=== PATIENT | female | born 1960 | race Caucasian/White ===

== ENCOUNTER 2019-04-24 11:11 | Day surgery (SDC) | payer BC, SELFPAY ==
--- NOTE | 2019-04-24 | COLBX_PTH ---
PATIENT: DOC NEUMANN LOC: EN U#:[id number] AGE/SX: 58/F ROOM: RE04/24/[address]: Dr. Shanna Akhtar MD : 1960 BED: DIS: 04/24/2019 SPEC #: [id number] RECD: 04/24/19 14:37 STATUS: STEFANI RETatiana #: [id number] YUMIKO: 04/24/19 00:[address]: Shanna Akhtar DEPT: SURGICAL PATHOLOGY RECD BY: Jaime Awad ENTERED: 04/24/19 14:39 SP TYPE: COLON BX OTHR DR: Dr. Tucker Wilcox III, MD Tissues: Cecum, NOS Procedures: Surgery Specimen Level IV HEADER OPERATION: Colonoscopy (MAC) PRE-OP DIAGNOSIS: Screening TISSUE SUBMITTED: Cecal polyp biopsy MICROSCOPIC DIAGNOSIS Cecal polyp, biopsy: Hyperplastic polyp. SJ:ash 04/25/19 MICROSCOPIC DESCRIPTION Slides are reviewed. GROSS DESCRIPTION Received in fixative is one container labeled with the patient's name and designated cecal polyp biopsy. The specimen consists of one irregular fragment of light guerrero soft tissue that measures 0.2 x 0.2 x 0.1 cm. The specimen is totally submitted in one cassette. / SJ:ash 04/24/19 TC:1 CPT: 86061
--- NOTE | 2019-04-24 09:48 | PCM.HP.BLA ---
History and Physical Date of Admission: 04/24/19 GENERAL HISTORY AND PHYSICAL EXAMINATION Chief Complaint: here for colonoscopy History of Present Illness: 58 y/o WF here for colon cancer for screening for colon cancer. She states that she last had a colonoscopy about 10 years ago. She denies family history of colon cancer. Denies noting blood in stools Past Medical History: hypothyroidism history of breast cancer hypertension Past Surgical History: AMPUTATION TRANSMETACARP,SECOND CLOS ? 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 2013 LUMPECTOMY/RADIOTHERAPY DIAG MAMM/A10 ? 1994 LEFT cancer, no nodes. Medications: aspirin, enteric coated (ASPIRIN, ENTERIC COATED) 81 mg EC tablet DAILY MULTI-VITAMIN ORAL levothyroxine (SYNTHROID) 175 mcg tablet lisinopril (ZESTRIL, PRINIVIL) 10 mg tablet Allergies: Has no known drug allergies Social history: TOB use denies Review of Systems: General - denies fevers Cardiovascular denies chest pain Pulmonary denies coughing up blood Gastrointestinal as per HPI Neurological denies seizures Genitourinary denies blood in urine Hematological denies spontaneous/prolonged bleeding Skin denies open non healing wounds Endocrine has hypothyrodism Psychological denies hallucinations Physical examination: General WD/WN WF in no apparent distress, alert and oriented, not septic appearing HEENT Normocephalic. EOM intact with sclera clear and no icterus noted. Neck is supple with no jugular venous distention noted. Trachea is midline. Lungs normal breath sounds . No rales/rhonchi/wheezing noted. No labored breathing noted, such as retractions. No cough heard. Heart normal heart sounds, regular. Abdomen soft and benign. Normal bowel sounds Extremities no pitting edema noted. . Genitourinary/Rectal deferred Skin normal skin integrity. Neurological non focal. Psychological normal affect, patient is calm and appropriate Impression: screening for colon cancer via colonoscopy Discussion/Plan: I have discussed the above with the patient. I have offered colonoscopy, possible biopsies for evaluation. I have explained the procedure to the patient. I have counseled the patient as to the risks of the procedure, including but not limited to: infection, bleeding, injury to any blood vessels/nerves, perforation of the GI tract, injury to any internal organs such as liver/spleen, inability to complete the procedure, etc. - she understands and agrees to proceed. I have answered all questions to the patient?s satisfaction and the patient has no further questions.
[2019-04-24 11:32] VITALS: BP 135/97; PULSE 86; RESP 16; TEMP 36.9; O2SAT 96; BMI 34.7
[2019-04-24] MEDS: Lactated Ringers 1,000 ML 100 ML IV (11:45)
[2019-04-24 13:15] VITALS: BP 114/78; BP 135/97; PULSE 91; RESP 22; TEMP 36.4; O2SAT 93
--- NOTE | 2019-04-24 13:16 | OP.CCLET_ITS ---
04/24/2019 Tucker Wilcox Iii [address] [place] [address] Re : Colonoscopy procedure for Michelle See Dear Dr. Wilcox This procedure was performed on Wednesday, April 24, 2019. My impressions and recommendations are as follows: Impressions : - Preparation of the colon was fair. - One 4 to 9 mm polyp in the cecum, removed with a cold biopsy forceps. Resected and retrieved. - Non-bleeding internal hemorrhoids. Recommendations : - Repeat colonoscopy date to be determined after pending pathology results are reviewed for surveillance based on pathology results. - Return to my office to see VILMA Medina for results in 1-2 weeks. - Continue present medications. My findings are described in the full procedure note, which is enclosed. If I can be of further assistance, please feel free to contact me at Doctor phone number(s): , Work: . Sincerely, MD Shanna Felipe MD 04/24/2019 1:15:31 PM This report has been signed electronically.
--- NOTE | 2019-04-24 13:16 | OP.COLON_ITS ---
Patient Name: Michelle Rodas Procedure Date: 04/24/2019 12:35 PM Date of : 1960 Age: 58 Procedure: Colonoscopy Indications: Screening for colorectal malignant neoplasm Providers: Shanna Akhtar MD Referring MD: Tucker Wilcox Iii Medicines: See the Anesthesia note for documentation of the administered medications Patient Profile: Refer to note in patient chart for documentation of history and physical. Last Colonoscopy: 10 years ago. Complications: No immediate complications. Procedure: Pre-Anesthesia Assessment: - see anesthesia note After I obtained informed consent, the scope was passed under direct vision. Throughout the procedure, the patient's blood pressure, pulse, and oxygen saturations were monitored continuously. The colonoscope was introduced through the anus and advanced to the cecum, identified by appendiceal orifice and ileocecal valve. The colonoscopy was performed without difficulty. The patient tolerated the procedure well. The quality of the bowel preparation was poor, there was still retained fecal material. Therefore lavage and aspiration was done to clear the fecal material. This took some time. The lewis were cleared adequately. Scope In: 12:46:50 PM Scope Withdrawal Time 0 hours 10 minutes 42 seconds Scope Out: 1:09:52 PM Total Procedure Duration Time 0 hours 23 minutes 2 seconds Findings: The perianal and digital rectal examinations were normal. Pertinent negatives include normal sphincter tone. A 4 to 9 mm polyp was found in the cecum. The polyp was sessile. The polyp was removed with a cold biopsy forceps. Resection and retrieval were complete. Verification of patient identification for the specimen was done by the nurse. Estimated blood loss was minimal. Non-bleeding internal hemorrhoids were found. Impression: - Preparation of the colon was fair. - One 4 to 9 mm polyp in the cecum, removed with a cold biopsy forceps. Resected and retrieved. - Non-bleeding internal hemorrhoids. Recommendation: - Repeat colonoscopy date to be determined after pending pathology results are reviewed for surveillance based on pathology results. - Return to my office to see VILMA Medina for results in 1-2 weeks. - Continue present medications. Procedure Code(s): --- Professional --- 53443, Colonoscopy, flexible; with biopsy, single or multiple Diagnosis Code(s): --- Professional --- Z12.11, Encounter for screening for malignant neoplasm of colon K64.8, Other hemorrhoids D12.0, Benign neoplasm of cecum CPT copyright 2017 [employer]. All rights reserved. The codes documented in this report are preliminary and upon marine services technician review may be revised to meet current compliance requirements. MD Shanna Felipe MD 04/24/2019 1:15:31 PM This report has been signed electronically. Number of Addenda: 0 Note Initiated On: 04/24/2019 12:35 PM
[2019-04-24 13:20] VITALS: BP 110/72; BP 135/97; PULSE 81; RESP 16; O2SAT 95
[2019-04-24 13:25] VITALS: BP 109/78; BP 135/97; PULSE 80; RESP 16; O2SAT 94
[2019-04-24 13:30] VITALS: BP 119/82; BP 135/97; PULSE 78; RESP 16; TEMP 36.4; O2SAT 93
[2019-04-24 14:11] VITALS: BP 135/97
== END 2019-04-24 14:12 | disposition home or self-care (01) ==
LOC: EN 11:12 → AC 11:15
PROVIDERS: PCP Family Medicine; Referring Provider Surgery; Visit Provider Surgery
PROC: 0DJD8ZZ Inspection of Lower Intestinal Tract, Via Natural or Artificial Opening Endoscopic (ICD-10-PCS; CPT 45378; principal; 2019-04-24 12:25)
DX: Z12.11 Encounter for screening for malignant neoplasm of colon (principal); K63.5 Polyp of colon; K64.8 Other hemorrhoids; I10 Essential (primary) hypertension; E03.9 Hypothyroidism, unspecified; Z78.0 Asymptomatic menopausal state; Z79.82 Long term (current) use of aspirin; Z79.899 Other long term (current) drug therapy; Z85.3 Personal history of malignant neoplasm of breast; Z92.21 Personal history of antineoplastic chemotherapy; Z92.3 Personal history of irradiation
CPT/HCPCS: 45380; 88305; J7120; J2405